=== PATIENT | male | born 1955 | race Caucasian/White ===

== ENCOUNTER 2025-01-19 21:34 | Inpatient (IN) | payer MEDICARE, OTHER, SELFPAY ==
[2025-01-19 18:21] VITALS: BP 125/68
[2025-01-19 18:28] VITALS: BMI 33.4
[2025-01-19 18:43] LABS: % Basophils 0.6 % (0-2); % Eosinophils 1.8 % (0-6); % Immature Granulocytes 0.5 % (0-0.5); % Lymphocytes 20.5 % (20.5-51.1); % Monocytes 7.1 % (1.7-9.3); % Neutrophils 69.5 % (42.2-75.2); Absolute Basophils 0.1 10^3/uL (0-0.2); Absolute Eosinophils 0.2 10^3/uL (0-0.7); Absolute Immature Granulocytes 0.1 10^3/uL (0-0.05); Absolute Lymphocytes 2.4 10^3/uL (1.2-3.4); Absolute Monocytes 0.8 10^3/uL (0.1-0.6); Hematocrit 38.1 % (39.0-52.0); Hemoglobin 13.2 g/dL (13.0-18.0); Mean Corp Hgb Conc. 34.6 g/dL (33.0-37.0); Mean Corpuscular Hgb 31.9 pg (27.0-31.0); Mean Platelet Volume 9.4 fL (7.4-10.4); Nucleated Red Blood Cells % 0 % (-); Platelet Count 220 10^3/uL (130-400); Red Blood Cell Count 4.14 10^6/uL (4.70-6.10); Red Cell Dist. Width 12.4 % (11.5-14.5); White Blood Cell Count 11.5 10^3/uL (4.8-10.8)
[2025-01-19 18:55] LABS: Blood Urea Nitrogen 19 mg/dl (9-20); Calcium 8.9 mg/dl (8.4-10.2); Carbon Dioxide 26 mmol/L (22-30); Chloride 105 mmol/L (98-107); Estimated Creatinine Clearance 99 ml/min; Glucose 133 mg/dl (70-99); Sodium 140 mmol/L (135-145); eGFR > 60.00
[2025-01-19 19:12] LABS: ALT (SGPT) 113 U/L (0-50); AST (SGOT) 80 U/L (17-59); Albumin 3.5 g/dl (3.5-5.0); Alkaline Phosphatase 65 U/L (38-126); Total Bilirubin 1.2 mg/dl (0.2-1.3); Total Protein 5.9 g/dl (6.3-8.2)
[2025-01-19 19:39] LABS: Potassium 3.4 mmol/L (3.5-5.1)
[2025-01-19 20:00] VITALS: BP 103/73
--- NOTE | 2025-01-19 20:07 | ED.GENMED ---
History of Present Illness
General
Chief Complaint: Rectal Bleeding
Source: patient and spouse
Exam Limitations: none
Time Seen by Provider: 01/19/25 19:38
Nursing documentation reviewed up to this point in time: agreed with
History of Present Illness
History of Present Illness:
Patient presents to ED for an evaluation after multiple episodes of bloody bowel movements, along with 1 vomiting episode. Shortly after vomiting, patient was in bed not feeling well, when he passed out for 'seconds', witnessed by spouse. Denies
preceding chest palpitations, chest pain, or nausea. Per spouse, patient became pale when the incident occurred. When patient came to, patient felt tired, but denies any confusion. Denies previous history of similar symptoms. Patient takes 81 mg
aspirin daily. Patient does report couple of ibuprofen tablets after coming back home from [facility] this afternoon, prior to bloody bowel movements. However, patient does not take ibuprofen daily. Of note, patient does report returning from
vacationing down in [place] recently, and over the weekend, he felt as though he was coming down with 'viral illness'. Since then, his symptoms have improved.
Review of Systems
Review of Systems
Allergies reviewed?: Yes
All Other Systems: ROS reviewed and negative except as documented in HPI and ROS
Constitutional: Reports no symptoms; Denies fever
Respiratory: Reports no symptoms
Cardiac: Reports syncope
ABD/GI: Reports bloody stools; Denies vomiting or diarrhea
Musculoskeletal: Reports no symptoms
Skin: Reports no symptoms
Neurological: Reports dizzy; Denies weakness
Phy Exam
Physical Exam
Physical Exam:
Physical Exam
General: no apparent distress, not acutely ill. afebrile
Head: nc/at. eomi
Neck: supple. normal range of motion.
Heart: s1/s2 regular rate and rhythm
Lungs: no acute respiratory distress. clear bilaterally
Abdomen: normal bowel sounds. not tender.
Neuro: alert and oriented x 3. no focal neurological deficits
Skin: no rash
Psychiatric: well kept. interactive and cooperative
Extremities: no edema. no calf tenderness.
Course
Orders/Labs/Results
Orders:
Orders
01/19/25 Dinner
Clear Liquid
At Your Request: Full Participation
Does patient need a safe tray?: No
01/19/25 18:19
Electrocardiogram (*1) Urgent
Reason for Study: Syncope
01/19/25 18:20
EKG- Treatment ONCE
01/19/25 18:31
Type And Crossmatch [Type+Screen] Urgent
Complete Blood Count/With Diff Urgent
Comprehensive Metabolic Panel Urgent
01/19/25 19:05
ABO2 Urgent
BBK Wristband Number:
Associate notified that ABO2 has been ordered: [id number]
Date: 01/19/25
Time: 19:00
Clinical Implementation Specialist ID: [id number]
01/19/25 20:18
Pantoprazole [Protonix IV] 40 mg IV NOW STA
01/19/25 20:31
PTT Urgent
Prothrombin Time Urgent
01/19/25 21:12
Admit/Transfer Patient As Directed
Co-Sign Provider:
Level of Care: Inpatient admission
Assign to:: Telemetry
Physician / Group: hospitalist
Diagnosis: Lower GI bleed
Reason for Telemetry: Other
Other Reason for Telemetry: GI bleed
Date to Stop Telemetry: 01/21/25
Time to Stop Telemetry: 11:00
Reason for Hospitalization: lower GI bleed
Expected length of stay greater than two midnights?: Yes
ELOS- Estimated Length of Stay in days: 2
I certify the patient meets the requirements for IP care: Yes
01/19/25 21:13
Code Status As Directed
Resuscitation Status: Full Code
PRN Pain Medication Management As Directed
May give lesser potent ordered pain med per pt: Yes
preference::
Protocol:: Medication orders for pain may be administered in a
manner that supports deferring to patient preference
when the pt is:
- Requesting an ordered lesser potent pain medication.
Least to most potent pain medications are defined
as: acetaminophen < NSAID < tramadol < opioids
(morphine, oxycodone, hydromorphone).
- Requesting a lesser dose of the same medication IF
ORDERED.
- Requesting a less intrusive route of administration
if both routes are prescribed by the provider (PO <
IV).
01/19/25 21:46
GASTROINTESTINAL CONSULT Routine
Consulting Provider: David Sanchez
Was physician already notified: Yes
Reason for consult: gi bleed
Activity As Directed
Activity Level: With Assistance
INT (Intravenous Needle Therapy) As Directed
Comment: Place 2 IV catheters of the largest bore possible until stable
Orthostatic Vital Signs As Directed
Orthostatic VS Frequency: Daily
Pneumatic Compression Sleeves As Directed
Type: Knee high
Vital Signs As Directed
Frequency: Per unit guidelines
DX Deep Vein Thrombosis Video Routine
01/19/25 22:00
Flush (0.9% Sodium Chloride) [Flush (Nss)] See Dose Instructions IV PER PROTOCOL
01/19/25 22:58
H&H Q8H
01/20/25 05:18
H&H Q8H
01/20/25 08:00
Allopurinol [Zyloprim] 300 mg PO DAILY
Pantoprazole [Protonix IV] 40 mg IV DAILY
01/20/25 13:38
H&H Q8H
01/20/25 21:46
H&H Q8H
01/21/25 11:00
DC Protocol for Telemetry ONCE
Abnormal Lab Results
01/19/25
18:31
WBC 11.5 H 10^3/uL
(4.8-10.8)
RBC 4.14 L 10^6/uL
(4.70-6.10)
Hct 38.1 L %
(39.0-52.0)
MCH 31.9 H pg
(27.0-31.0)
Abs Immat Gran (auto) 0.1 H 10^3/uL
(0-0.05)
Absolute Neuts (auto) 8.0 H 10^3/uL
(1.4-6.5)
Absolute Monos (auto) 0.8 H 10^3/uL
(0.1-0.6)
Potassium 3.4 L mmol/L
(3.5-5.1)
Glucose 133 H mg/dl
(70-99)
AST 80 H U/L
(17-59)
ALT 113 H U/L
(0-50)
Total Protein 5.9 L g/dl
(6.3-8.2)
01/19/25 18:31
01/19/25 18:31
Vital Signs
Initial and Last Documented VS:
Initial Vital Signs
Temp Pulse Resp BP Pulse Ox
97.7 F 71 16 125/68 96
01/19/25 18:21 01/19/25 18:21 01/19/25 18:21 01/19/25 18:21 01/19/25 18:21
Last Documented Vital Signs
Temp Pulse Resp BP Pulse Ox
98.0 F 78 16 144/78 98
01/20/25 11:33 01/20/25 11:33 01/20/25 11:33 01/20/25 11:33 01/20/25 11:33
MDM/Problems Addressed
MDM/Problems Addressed:
H/H noted. Syncopal episode, likely vasovagal in nature, along with likely component of dehydration versus acute volume loss and via multiple bloody bowel movements. Nonetheless, patient is currently asymptomatic with stable vital signs. No
further episodes of bloody bowel was noted in ED. Patient given Protonix IV. Patient will be admitted for further evaluation and treatment, with consideration to obtain CT angiogram abdomen pelvis with any further bloody bowel movements in ED.
Blood transfusion consent on the chart. GI physician on-call, , notified via [facility] text.
*EKG
Interpreted by ED Provider?: Yes
EKG Intrepretation Date: 01/19/25
Heart Rate: 68
Rate: normal
Rhythm: sinus
Dale: normal axis
*Critical Care Note
Total Time (30-74mins, 75-104mins- exclusive of procedures): Not Applicable
ED Attending Note
-
Portions of this chart may have been created with voice recognition software.� Occasional wrong word or��sound alike� substitutions may have occurred due to the inherent limitations of voice recognition software.
Discharge Plan
Departure
Patient Disposition: Admit
Date of Disposition: 01/19/25
Time of Disposition: 20:12
Admit to: Telemetry
Presentation/result/management discussed w/ accepting MD/DO: Hospitalist
Discharge Problem:
GI bleed, Syncope
Interventions
Interventions:
*Risk Screen - Suicide Last Done: 01/19/25 18:21
*General Assessment Last Done: 01/19/25 18:21
*Neglect/Abuse Screening Last Done: 01/19/25 18:21
*ED- Fall Risk Assessment Last Done: 01/19/25 18:28
*ED COVID-19 Vaccine History Last Done: 01/19/25 18:28
*Nursing Disposition Last Done: 01/19/25 21:42
GM-Dqxjoj-Djclujoqlc Assessment Last Done: 01/19/25 18:29
ED- Cardiac Assessment Last Done: 01/19/25 18:29
ED- Pulmonary Assessment Last Done: 01/19/25 18:29
Discharge Date and Time
Discharge Date/Time: 01/19/25 21:43
[2025-01-19] MEDS: PROTONIX IV 40 MG IV (20:31)
[2025-01-19 20:50] LABS: PT 14.5 Sec (11.4-14.6)
[2025-01-19 20:51] LABS: APTT 24.5 Sec (23.4-35.0)
[2025-01-19 21:00] VITALS: BP 147/87
--- NOTE | 2025-01-19 21:05 | HPS.HSE ---
Family Physician
-
Family Physician: Austin Hopkins
Chief Complaint
-
Rectal bleeding
History of Present Illness
Is a 69-year-old male with past medical history significant hypertension, gout, history of chronic elevated LFTs presenting to the emergency department with episode of bright red blood per rectum as well as presyncope.
Patient was in usual state of health and actually played golf today. After getting home at around 4 PM he had an episode of bright red blood in the toilet bowl. He did not think too much of it. He denied having any abdominal pain. He denies any
nausea or vomiting at that time.
Patient then had another episode of bloody bowel movement that included lots of clots. After having this bloody bowel movement he had nausea and then vomited. The vomit was nonbloody and nonbilious.
Patient denies any preceding episodes of melena or hematochezia or abdominal pain. He denies any fevers or chills. His last colonoscopy was about 4 years ago and reported that there was no abnormal findings noted.
He takes 81 mg aspirin daily. He took additional NSAIDs today but generally denies taking NSAIDs on a regular basis.
Patient drinks about 2 glasses of wine nightly.
He did have an episode of presyncope after the vomiting. This lasted for about 15 seconds. When EMS arrived and patient stood up he felt very dizzy and had a episode of low blood pressure at that time.
In the emergency department here he had received a liter of fluids per EMS. His blood pressure was 125/60 sitting with a pulse of 75 and he was satting 97% on room air. Hemoglobin was 7.2 with normal platelet count. INR is normal. Electrolytes
BUN/creatinine has remained all in the normal range.
Medical History
Past Medical History
Past Medical History: Reports HTN
Past Surgical History: Reports Appendectomy and Other (Hernia repair)
Social History
Tobacco: Non-smoker
Alcohol: Daily (2 glasses of wine)
Drug: None
Personal:
Living: With Family
Family History
Family History: Not pertinent
Allergies / Home Medications
Allergies reflects when Allergies were last updated in [facility].
Home Medications with original date entered in [facility]
Allergy/Medication List:
Allergies
Allergy/AdvReac Type Severity Reaction Status Date / Time
No Known Allergies Allergy Verified 01/19/25 18:29
Home Medications
allopurinol 300 mg tablet 300 mg PO DAILY 01/19/25
amlodipine 5 mg tablet 5 mg PO DAILY 01/19/25
aspirin 81 mg tablet,delayed release 81 mg PO DAILY 01/19/25
ibuprofen 200 mg tablet 400 mg PO DAILYPRN PRN mild pain 01/19/25
lisinopril 20 mg-hydrochlorothiazide 25 mg tablet 1 tab PO DAILY 01/19/25
therapeutic multivitamin 1 tab PO DAILY 01/19/25
Review of Systems
-
History Source: Patient
Constitutional: Reports No Symptoms
EENT: Reports No Symptoms
Respiratory: Reports No Symptoms
Cardiac: Reports No Symptoms
Abdomen/GI: Reports Bloody Stools
: Reports No Symptoms
Musculoskeletal: Reports No Symptoms
Skin: Reports No Symptoms
Neurological: Reports No Symptoms
Endocrine: Reports No Symptoms
Hematologic/Lymphatic: Reports No Symptoms
Psych: Reports No Symptoms
Physical Exam
Vital Signs
Vital Signs
Temp Pulse Resp BP Pulse Ox
97.7 F 75 27 125/68 96
01/19/25 18:21 01/19/25 19:30 01/19/25 19:30 01/19/25 18:21 01/19/25 19:30
Physical Exam
General: Well Developed, Well Nourished, No Apparent Distress and Comfortable
HEENT: NormoCephalic, Anicteric, Moist mucous membranes and Atraumatic
Respiratory: Clear
Cardiac: S1/S2 and Regular Rhythm
GI: Soft, Non Tender, Non Distended and Normal Bowel Sounds
Rectal: Red
Genito-urinary: Deferred by me
Musculoskeletal: No Clubbing, No Cyanosis and No Edema
Skin: Warm
Neuro: AO x 3 and No Motor Deficits
Hematologic/Lymphatic: No Lymphadenopathy
Psych: Calm
Laboratory Results
-
01/19/25 18:31
01/19/25 18:31
Laboratory Results
PT 14.5 Sec (11.4-14.6) 01/19/25 20:31
INR 1.10 01/19/25 20:
APTT 24.5 Sec (23.4-35.0) 01/19/25 20:
Total Bilirubin 1.2 mg/dl (0.2-1.3) 01/19/25 18:31
AST 80 U/L (17-59) H 01/19/25 18:31
ALT 113 U/L (0-50) H 01/19/25 18:31
Alkaline Phosphatase 65 U/L (38-126) 01/19/25 18:31
Data Reviewed
-
Lab Data: Labs Reviewed by me
Old Records: Reviewed
Impression/Plan
-
IMPRESSION:
69-year-old with history of hypertension presents emergency department with bright red blood per rectum and presyncopal episode. He had 2 episodes of bloody bowel movement. He has not had another episode since arrival in the emergency department.
He is currently hemodynamically stable with a hemoglobin of 13.2. Denies any prior history of GI bleed. He is not on any anticoagulants. He is on aspirin daily. Last colonoscopy was about 4 years ago which shows no acute abnormalities. No
recent episodes of melena or hematochezia. No history of peptic ulcer disease or GERD.
PLAN:
1. Bright red blood per rectum�suspected lower GI bleed. Given apparent cessation and passing of clots suspect most likely diverticular but no known history of diverticulosis. He had clear colonoscopy 4 years ago so unlikely malignancy. No
anticoagulation. Cannot rule out a malformation. No diarrhea or abdominal pain to suggest ischemic colitis.
- admit to telemetry
- clear liquid diet for now
- typed and crossed, consented
- H&H q 8
- if recurrent bleed, will get CT GI bleeding scan, hold imaging for now
- hold antihypertensives
- gentle hydration overnight
- GI consulted and aware
2. Transaminitis - Patient drinks about 2 glasses of wine daily. Reports h/o chronic elevations in LFTS. No abdominal pain. PMD aware and since stability of labs has not ordered further w/u
- possible fatty liver, consider outpatient u/s
- reduce etoh intake
- no h/o withdrawal
3. HTN
- holding amlodipine, lisinopril-hctz for now
DVT PPX - SCDs
Code status - Full code
[2025-01-19 22:07] VITALS: BP 127/76; BP 130/65; BP 138/75; PULSE 82; PULSE 84; PULSE 96; BMI 28.8
--- NOTE | 2025-01-19 22:15 | PTCARENOTE ---
Prehospital site removed in left AC, see worklist. Order for 2 large bore IV's until patient stable, discussed with RN and patient stable at this time, no need for additional IV.
--- NOTE | 2025-01-19 22:29 | PTCARENOTE ---
Receive pt from ER. Pt alert oriented X3, calm and cooperative, in no distress. Pt denies dizziness, SOB, chest pain, abd pain, or any new bleeding episode. Pt assist X1 to bed. Pt oriented to the room, call palmer within reach, at the bedside.
VSS (T=98, HR=82, RR=18, VY=482/75, SpO2=97% on RA). Orthos VS unremarkable. Pt on NSR on telemonitor. H&H drawn as per order. Will continue to monitor the pt.
[2025-01-19 23:18] VITALS: BP 121/72
[2025-01-20 03:42] VITALS: BP 138/78
[2025-01-20 06:39] LABS: Hematocrit 34.5 % (39.0-52.0); Hemoglobin 11.9 g/dL (13.0-18.0)
[2025-01-20 07:10] VITALS: BP 122/76; BP 136/82; BP 150/80; PULSE 77; PULSE 81; PULSE 97
[2025-01-20 07:10] LABS: ALT (SGPT) 100 U/L (0-50); AST (SGOT) 60 U/L (17-59); Albumin 3.5 g/dl (3.5-5.0); Alkaline Phosphatase 61 U/L (38-126); Blood Urea Nitrogen 23 mg/dl (9-20); Calcium 8.5 mg/dl (8.4-10.2); Carbon Dioxide 23 mmol/L (22-30); Chloride 107 mmol/L (98-107); Direct Bilirubin 0.2 mg/dl (0.0-0.4); Estimated Creatinine Clearance 124 ml/min; Glucose 108 mg/dl (70-99); Potassium 3.9 mmol/L (3.5-5.1); Sodium 139 mmol/L (135-145); Total Bilirubin 1.3 mg/dl (0.2-1.3); Total Protein 5.9 g/dl (6.3-8.2); eGFR > 60.00
--- NOTE | 2025-01-20 07:54 | CON.GI ---
Addendum entered and electronically signed by David Sanchez MD 01/20/25 10:08:
Patient seen and examined, agree with nurse practitioner note. Patient is a 6-year-old male with medical history as noted presents with bright red blood per rectum with clots. He was in his usual state of health and then had 2 episodes of large
amount of bright red blood with clots. He felt lightheaded did not have syncope. He is never had bleeding like this before. He was taking NSAIDs on occasion that has been stopped for a bit, and does take aspirin daily. His last colonoscopy was
okay by report, does not member having diverticulosis. He states that his LFTs have been mildly elevated, though have been trended as an outpatient and overall stable. On exam he has no significant tenderness. He did have 1 bowel movement this
morning which was smaller, though still small mount of clots and red, though denies any further lightheadedness or dizziness.
1. GI bleed: Likely lower, likely diverticular, with normal BUN on admission, had an episode of emesis when he was lightheaded without coffee grounds or blood, now remains hemodynamically stable. His bowel movement this morning was likely old
blood. Will continue observation for now, clear liquid diet for today. If signs of brisk active bleeding then CT angiogram. If all remains stable then likely be able to advance diet and discharge tomorrow. Will obtain records from his last
colonoscopy.
2. Elevated LFTs: In a mild necroinflammatory pattern, likely related to metabolic associated fatty liver disease. Will get old records, and plan outpatient workup.
Original Note:
Consultation
-
Date/Time Consultation Requested: 01/19/25 6796
Date/Time Consultation Performed: 01/20/25 0740
Requesting Provider: Dr. Greenfield
Performing Provider: Dr. Sanchez/CALI Samayoa
Reason for Consultation: GI Bleed
Medical History
Chief Complaint / HPI
Chief Complaint: Rectal bleeding
History of Present Illness:
69-year-old male with past medical history of hypertension Gout, chronically elevated LFTs (approximately last 3 to 4 years followed by his PCP without further workup) who presents to the hospital with 2 episodes of bright red blood as well as
presyncopal episode. Asked to evaluate for the same. The patient states that approximately 2 weeks ago he 'tweaked his back'. And was taking intermittent ibuprofen 2 to 3 pills every day to every couple days, stopping last Wednesday. He does take
aspirin 81 mg daily. He does drink approximately 4 to 5 glasses of wine a week. His last colonoscopy was approximately 3 to 4 years ago at [facility]. He states he gets a colonoscopy approximately once every 10 years. No family history of
gastrointestinal malignancy, IBD. He does not have any upper GI symptoms leading up to this. The patient states that yesterday morning he had a normal brown bowel movement. Later he sat down to have another bowel movement and he noticed he had
brown stool with bright red blood in the toilet. He then felt the urge to have another bowel movement this time it was bright red blood with clots and he felt nauseous and felt like he was going to pass out, he did have a small amount of clear
vomitus. He sat down. His then brought him to the emergency room for further evaluation. Since that time he has had no further episodes of bleeding. He has had no bowel movements. He never had any abdominal pain. He denies any chest pain
or shortness of breath. The patient denies any fevers, chills, melena, dysphagia or dyne aphasia. No early satiety or unintentional weight loss. He is currently tolerating clear liquid diet without any difficulty. There is no pain or tenderness
upon palpation. Followed by his PCP without any further workup. Was told they would just monitor it with blood work. Patient denies any tattoos, piercings, IV drug use, history of hepatitis.
Past Medical History
Past Medical History: HTN and Other (Gout, chronically elevated LFTs (3 to 4 years))
Past Surgical History: Other (Vasectomy, umbilical hernia, appendectomy)
Social History
Tobacco: Smoker (Occasional cigar)
Alcohol: Occasional (Proximately 3 to 4 glasses of wine a week)
Drug: None
Personal:
Living: With Family
Employment: Retired
Family History
Family History: Other (Family history gastrointestinal malignancy or IBD)
Allergies / Home Medications
Allergy/AdvReac Type Severity Reaction Status Date / Time
No Known Allergies Allergy Verified 01/19/25 18:29
�Medication �Instructions �Recorded
allopurinol 300 mg tablet 300 mg PO DAILY 01/19/25
amlodipine 5 mg tablet 5 mg PO DAILY 01/19/25
aspirin 81 mg tablet,delayed 81 mg PO DAILY 01/19/25
release
ibuprofen 200 mg tablet 400 mg PO DAILYPRN PRN mild pain 01/19/25
lisinopril 20 1 tab PO DAILY 01/19/25
mg-hydrochlorothiazide 25 mg tablet
therapeutic multivitamin 1 tab PO DAILY 01/19/25
Review of Systems
-
All other systems: A 12 pt ROS was Negative except as stated above in HPI
Vital Signs
Temp Pulse Resp BP Pulse Ox
97.7 F 70 18 138/78 98
01/20/25 03:42 01/20/25 03:42 01/20/25 03:42 01/20/25 03:42 01/20/25 03:42
Physical Exam
Exam
General: No Apparent Distress
HEENT: Anicteric
Respiratory: Clear
Cardiac: Regular Rhythm
GI: Soft, Non Tender, Non Distended and Normal Bowel Sounds
Rectal: Red (Exam performed by the send attending was red )
Musculoskeletal: No Edema
Skin: Warm and Dry
Neuro: AO x 3
Psych: Calm
Results
WBC 11.5 10^3/uL (4.8-10.8) H 01/19/25 18:31
Hgb 11.9 g/dL (13.0-18.0) L 01/20/25 05:18
Hct 34.5 % (39.0-52.0) L 01/20/25 05:18
MCV 92.0 fL (80.0-94.0) 01/19/25 18:31
Plt Count 220 10^3/uL (130-400) 01/19/25 18:31
Absolute Neuts (auto) 8.0 10^3/uL (1.4-6.5) H 01/19/25 18:31
PT 14.5 Sec (11.4-14.6) 01/19/25 20:31
INR 1.10 01/19/25 20:31
APTT 24.5 Sec (23.4-35.0) 01/19/25 20:31
Sodium 139 mmol/L (135-145) 01/20/25 05:18
Potassium 3.9 mmol/L (3.5-5.1) 01/20/25 05:18
Chloride 107 mmol/L (98-107) 01/20/25 05:18
Carbon Dioxide 23 mmol/L (22-30) 01/20/25 05:18
BUN 23 mg/dl (9-20) H 01/20/25 05:18
Creatinine 0.7 mg/dL (0.7-1.3) 01/20/25 05:18
Calcium 8.5 mg/dl (8.4-10.2) 01/20/25 05:18
Total Bilirubin 1.3 mg/dl (0.2-1.3) 01/20/25 05:18
AST 60 U/L (17-59) H 01/20/25 05:18
ALT 100 U/L (0-50) H 01/20/25 05:18
Alkaline Phosphatase 61 U/L (38-126) 01/20/25 05:18
Diagnostic Image Results:
None
Prior GI Procedures:
EGD: Never had
Colonoscopy: Per patient at [facility] approximately 3 to 4 years ago. States it was 'normal'. Records unavailable to us. Was having colonoscopies approximately every 10 years.
Assessment / Plan
-
69-year-old male with past medical history of hypertension Gout, chronically elevated LFTs (approximately last 3 to 4 years followed by his PCP without further workup) who presents to the hospital with 2 episodes of bright red blood as well as
presyncopal episode. Asked to evaluate for the same. Followed by his PCP without any further workup. Patient with first episode of rectal bleeding associated with bowel movement (bright red blood in bowl). Second was bright red blood with clots.
Associated with presyncopal episode, nausea, clear vomitus and dizziness. Hemoglobin on presentation 13.2 down to 11.9 this a.m. No further episodes of bowel movement or bleeding since arrival. Patient without tachycardia, lowest blood pressure
103/73, currently 136/82. Patient without any abdominal pain or tenderness. Tolerating clear liquid diet without any difficulty. Was on aspirin 81 mg as well as ibuprofen 200 mg 2-3 a day for 10 days leading up to event. Patient also with
chronically elevated AST/ALT for '3 to 4 years'. The patient is on allopurinol which can elevate AST/ALT. Unsure when he was placed on this. Patient has never had any liver imaging. Does drink 3-4 alcoholic beverages a week. Denies any heavier
use. Preserved platelets. INR 1.10. Recommended patient have evaluation of elevated LFTs as an outpatient.
Impression:
GI bleed, likely lower.
-Most likely etiology diverticular bleeding, less likely ischemic given no pain, AVM, or less likely upper GI bleed.
-Will need to obtain records from [facility] for last colonoscopy, as patient would like to follow-up with [facility] after discharge
Elevated transaminases
-Patient on allopurinol which can cause elevation in AST/ALT
-Patient also with obesity, to consider fatty liver
-Has been elevated for at least 3 to 4 years, followed by PCP serologically.
-Recommend to patient that he have this further worked up as an outpatient. Platelets preserved, INR 1.1.
-Would avoid alcohol, hepatotoxins
-Patient states that he would like to follow-up with our group as an outpatient as he is switching all his care to [facility].
Plan:
-Continue clear liquid for now. Can advance to low residue diet if continues to have no further bowel movements/bleeding
-Trend hemoglobin
-If with active signs of bleeding will check CT angio
-Follow-up with [facility] as an outpatient as patient would like to transfer his care
-Will need further workup as an outpatient for elevated AST/ALT
-Will need to obtain records from [facility] for prior colonoscopies as an outpatient
-Discussed with patient stop alcohol
-Will hold aspirin as patient does not have history of stents or cardiovascular events
-
-
Thank you for consultation and allowing me to participate in the patient's care. Please call the doorperson GI physician during the after hours with any questions or concerns.
[2025-01-20] MEDS: ZYLOPRIM 300 MG PO (08:35)
[2025-01-20] MEDS: FLUSH (NSS) 2 FLUSH IV (08:35)
[2025-01-20] MEDS: PROTONIX IV 40 MG IV (08:35)
[2025-01-20] MEDS: NSS (PRESERVATIVE FREE) 10 ML IV (08:35)
--- NOTE | 2025-01-20 09:03 | W.PN.HOSP.TC ---
Today's Communication/Plan
-
see plan
Assessment / Plan
Assessment / Plan
69-year-old with history of hypertension presents emergency department with bright red blood per rectum and presyncopal episode. He had 2 episodes of bloody bowel movement. He has not had another episode since arrival in the emergency department.
He is currently hemodynamically stable with a hemoglobin of 13.2. Denies any prior history of GI bleed. He is not on any anticoagulants. He is on aspirin daily. Last colonoscopy was about 4 years ago which shows no acute abnormalities. No
recent episodes of melena or hematochezia. No history of peptic ulcer disease or GERD.
Gen: NAD, AAOx3.
Eyes: EOMI, PERRLA, no scleral icterus.
Neck: supple.
CV: RRR, +S1/S2, no m/r/g.
Resp: CTAB, no rales, wheezes, or rhonchi.
Abd: +BS, soft, NT, ND
Skin: No rashes.
Neuro: CN 2-12 intact, non-focal.
Psych: Normal mood and affect.
BRBPR:
-likely due to LGIB, suspect diverticular
-acute blood loss anemia
-typed and crossed, consented
-trend Hb
-clears for now (bloody BM this AM)
-Holding home antihypertensives
-GI following
Transaminitis:
-minimal
-drinks ~ 2 glasses of wine daily. Reports h/o chronic elevations in LFTS. No abdominal pain. PCP aware and since stability of labs has not ordered further w/u.
-possible fatty liver, consider outpatient u/s
-no h/o withdrawal
-reduce EtOH intake
Essential HTN:
-holding home Norvasc/ACEi/HCTZ
FULL/SCDs
Anticipated Discharge: 24 - 48 hours
Subjective/Interval History
-
Date of Service: January 20, 2025
Denies abdominal pain. Had a bloody bowel movement this morning.
Objective Data
-
Labs:
Laboratory Results
01/19/25 01/20/25 01/20/25
22:58 05:18 13:46
Hgb 13.0 11.9 L Pending
Hct 37.0 L 34.5 L Pending
Sodium 139
Potassium 3.9
Chloride 107
Carbon Dioxide 23
BUN 23 H
Creatinine 0.7
Glucose 108 H
Calcium 8.5
Total Bilirubin 1.3
AST 60 H
ALT 100 H
Alkaline Phosphatase 61
01/20/25
21:46
Hgb Pending
Hct Pending
Sodium
Potassium
Chloride
Carbon Dioxide
BUN
Creatinine
Glucose
Calcium
Total Bilirubin
AST
ALT
Alkaline Phosphatase
Vital Signs:
Vital Signs
Temp Pulse Resp BP Pulse Ox
97.8 F 77 18 136/82 98
01/20/25 07:10 01/20/25 07:10 01/20/25 07:10 01/20/25 07:10 01/20/25 07:10
I&O
01/19/25 01/20/25 01/21/25
06:59 06:59 06:59
Intake Total 0 / 0
Balance 0 / 0
--- NOTE | 2025-01-20 11:30 | CM ---
Patient seen bedside w/ spouse. Initial assessment completed. Patient is a 69-year-old male with past medical history significant hypertension, gout, history of chronic elevated LFTs presenting to the emergency department with episode of bright red
blood per rectum as well as presyncope.
Patient reports that he resides w/ spouse in a 2STH- 1 step to enter. Patient is independent w/ ambulating, no device required. Independent w/ ADLs. No DME. Denies SNF/HC hx. OP therapy in the past. Denies any current OP or home services at this
time.
Address, points of contact and insurance verified
PCP: Austin Hopkins
Pharmacy: [facility]
Plan: Anticipate home; no needs
[2025-01-20 11:33] VITALS: BP 144/78
[2025-01-20 13:57] LABS: Hematocrit 31.3 % (39.0-52.0)
--- NOTE | 2025-01-20 15:00 | PTCARENOTE ---
Pt's Hgb result from 1330 back at 11.0, 11.9 this morning. Pt had one additional BM today, burgundy in color, small amount. Pt asymptomatic. Made Dr. Yang and Dr. Sanchez aware of BM and Hgb result. Continuing with clear liquids. Updated pt on plan.
[2025-01-20 15:18] VITALS: BP 132/77
[2025-01-20 21:46] LABS: Hematocrit 30.4 % (39.0-52.0); Hemoglobin 10.9 g/dL (13.0-18.0)
[2025-01-20 23:12] VITALS: BP 140/86
[2025-01-21 07:17] LABS: Hematocrit 31.7 % (39.0-52.0); Hemoglobin 11.1 g/dL (13.0-18.0); Mean Corpuscular Hgb 31.8 pg (27.0-31.0); Mean Corpuscular Volume 90.8 fL (80.0-94.0); Mean Platelet Volume 9.2 fL (7.4-10.4); Platelet Count 214 10^3/uL (130-400); Red Blood Cell Count 3.49 10^6/uL (4.70-6.10); Red Cell Dist. Width 12.2 % (11.5-14.5); White Blood Cell Count 8.1 10^3/uL (4.8-10.8)
[2025-01-21 07:55] VITALS: BP 149/89
[2025-01-21 08:03] LABS: Blood Urea Nitrogen 15 mg/dl (9-20); Calcium 8.5 mg/dl (8.4-10.2); Carbon Dioxide 26 mmol/L (22-30); Chloride 106 mmol/L (98-107); Estimated Creatinine Clearance 124 ml/min; Glucose 110 mg/dl (70-99); Potassium 3.7 mmol/L (3.5-5.1); Sodium 138 mmol/L (135-145); eGFR > 60.00
[2025-01-21] MEDS: NSS (PRESERVATIVE FREE) 10 ML IV (08:13)
[2025-01-21] MEDS: ZYLOPRIM 300 MG PO (08:13)
[2025-01-21] MEDS: PROTONIX IV 40 MG IV (08:13)
--- NOTE | 2025-01-21 09:05 | W.PN.GI.CBS2 ---
Today's Communication / Plan
-
Please see assessment and plan for details.
Assessment / Plan
-
1. GI bleed: Likely diverticular, now with stable hemoglobin, dark brown stool this morning, overall feeling well. At this point will advance diet, and if tolerates is okay to DC from GI standpoint.
2. 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
I sent a note to our office to follow-up with me within a month, will check outpatient records of last colonoscopy, LFTs etc. and plan continued outpatient workup.
Subjective
Subjective
Date of Service: January 21, 2025
Patient feeling well, had brown bowel movement with small amount of blood this morning, no abdominal pain, lightheadedness, tolerating liquid without difficulty.
Objective
Data Reviewed
Laboratory Data:
Laboratory Results
01/21/25 06:57
01/21/25 06:57
Laboratory Results
PT 14.5 Sec (11.4-14.6) 01/19/25 20:31
INR 1.10 01/19/25 20:31
APTT 24.5 Sec (23.4-35.0) 01/19/25 20:31
Total Bilirubin 1.3 mg/dl (0.2-1.3) 01/20/25 05:18
AST 60 U/L (17-59) H 01/20/25 05:18
ALT 100 U/L (0-50) H 01/20/25 05:18
Alkaline Phosphatase 61 U/L (38-126) 01/20/25 05:18
Vital Signs and I&O:
Vital Signs
Temp Pulse Resp BP Pulse Ox
97.6 F 79 16 149/89 97
01/21/25 07:55 01/21/25 07:55 01/21/25 07:55 01/21/25 07:55 01/21/25 07:55
I&O
01/20/25 01/21/25 01/22/25
06:59 06:59 06:59
Intake Total 1479 / 0
Balance 1479
Physical Exam
Physical Exam
General: NAD
Abdomen: normal bowel sounds, soft, no tenderness, no masses or bruits, no ascites
--- NOTE | 2025-01-21 09:51 | W.PN.HOSP.TC ---
Today's Communication/Plan
-
Discharge if patient tolerates a low residue diet
Assessment / Plan
Assessment / Plan
69-year-old with history of hypertension presents emergency department with bright red blood per rectum and presyncopal episode. He had 2 episodes of bloody bowel movement. He has not had another episode since arrival in the emergency department.
He is currently hemodynamically stable with a hemoglobin of 13.2. Denies any prior history of GI bleed. He is not on any anticoagulants. He is on aspirin daily. Last colonoscopy was about 4 years ago which shows no acute abnormalities. No
recent episodes of melena or hematochezia. No history of peptic ulcer disease or GERD.
Gen: NAD, AAOx3.
Eyes: EOMI, PERRLA, no scleral icterus.
Neck: supple.
CV: Remains RRR, +S1/S2, no m/r/g.
Resp: Remains CTAB, no rales, wheezes, or rhonchi.
Abd: Remains +BS, soft, NT, ND
Skin: No rashes.
Neuro: CN 2-12 intact, non-focal.
Psych: Normal mood and affect.
BRBPR:
-likely due to LGIB, suspect diverticular
-acute blood loss anemia
-typed and crossed, consented
-Hb stable
-advance to low residue diet
-Holding home antihypertensives
-GI following
Transaminitis:
-minimal
-drinks ~ 2 glasses of wine daily. Reports h/o chronic elevations in LFTS. No abdominal pain. PCP aware and since stability of labs has not ordered further w/u.
-possible fatty liver, consider outpatient u/s
-no h/o withdrawal
-reduce EtOH intake
Essential HTN:
-holding home Norvasc/ACEi/HCTZ
FULL/SCDs
Anticipated Discharge: Today
Subjective/Interval History
-
Date of Service: January 21, 2025
Denies any further bright red blood per rectum since yesterday. Denies abdominal pain.
Objective Data
-
Labs:
Laboratory Results
01/21/25
06:57
WBC 8.1
Hgb 11.1 L
Hct 31.7 L
Plt Count 214
Sodium 138
Potassium 3.7
Chloride 106
Carbon Dioxide 26
BUN 15
Creatinine 0.7
Glucose 110 H
Calcium 8.5
Vital Signs:
Vital Signs
Temp Pulse Resp BP Pulse Ox
97.6 F 79 16 149/89 97
01/21/25 07:55 01/21/25 07:55 01/21/25 07:55 01/21/25 07:55 01/21/25 07:55
I&O
01/20/25 01/21/25 01/22/25
06:59 06:59 06:59
Intake Total 0 / 0 1480 / 1480
Balance 0 / 0 1480 / 1480
[2025-01-21 11:44] VITALS: BP 131/77; BP 133/79; BP 138/79; PULSE 83; PULSE 87; PULSE 93
--- NOTE | 2025-01-21 12:41 | CM ---
Patient stable for d/c today
Met w/ patient and spouse bedside, agreeable to d/c.
IMM verbally reviewed, patient given copy, copy placed on chart
No CM needs identified at this time
Plan: Home; no needs
--- NOTE | 2025-01-21 13:24 | W.DCSUMMARY ---
Discharge Summary
Discharge Data
Date of Admission: 01/19/25
Date of Discharge: 01/21/25
-
Pending Results: No
Hospital Course
Primary diagnoses:
Acute diverticular bleed
Acute blood loss anemia
Secondary diagnoses:
Transaminitis
Essential pretension
Consultants:
Gastroenterology
Imaging:
None
Hospital course: 69-year-old male who presented with a chief complaint of rectal bleeding as outlined in the H&P done on admission. Patient was initially placed on a clear liquid diet. Hemoglobin on admission was 13.2. It dropped to 11.0 and was
stable at the time of discharge. The patient's lower GI bleeding resolved. He was seen in consultation by GI. His diet was advanced to a low residue diet which she tolerated prior to discharge. Patient also was noted to have a minimal
transaminitis. He reported a history of chronic elevation in his LFTs. He did not have any abdominal pain. His primary care physician has been aware of his elevated transaminases and since they have been stable he has not ordered further workup
at this time. The patient was advised to decrease his alcohol intake. He was discharged in medically stable condition
Discharge Plan
-
Patient Disposition: Home (Routine Discharge)
Discharge Diagnosis/Procedures: Acute diverticular bleed
Condition: Good
Diet: Low Cholesterol and 2 Gram Sodium
Activity: No restrictions
Driving Restrictions: As prior to admission
Bathing Restrictions: None
Blood Work: CMP and CBC in 1 week, prescription from PCP
Referrals:
Austin Hopkins DO [Family Provider] - in less than 1 week
Prescriptions:
Continued
therapeutic multivitamin Tablet
1 tab PO DAILY
amlodipine 5 mg Tablet
5 mg PO DAILY
aspirin 81 mg Tablet,Delayed Release (Dr/Ec)
81 mg PO DAILY
lisinopril-hydrochlorothiazide 20-25 mg Tablet
1 tab PO DAILY
allopurinol 300 mg Tablet
300 mg PO DAILY
Discontinued
ibuprofen 200 mg Tablet
400 mg PO DAILYPRN PRN (Reason: mild pain)
Discharge Orders:
Discharge Patient (As Directed); Ordered 01/21/25
Ordered By: Emerson Yang
Discharge Date and Time
Print Language: CENTRAL AFRICAN
[2025-01-21 14:02] VITALS: BP 132/84
== END 2025-01-21 14:06 | disposition home or self-care (01) | DRG 378 ==
LOC: 4 EAST ACU 21:34
PROVIDERS: Nurse Practitioner Family; Student in an Organized Health Care Education/Training Program; ADMITTING PHYSICIAN Internal Medicine; ATTENDING PHYSICIAN Internal Medicine; CONSULT PHYSICIAN Internal Medicine Gastroenterology; EMERGENCY PHYSICIAN Emergency Medicine; FAMILY PHYSICIAN Family Medicine
DX: K57.31 Diverticulosis of large intestine without perforation or abscess with bleeding (principal); D62 Acute posthemorrhagic anemia; Z79.82 Long term (current) use of aspirin; M10.9 Gout, unspecified; I10 Essential (primary) hypertension; Z90.49 Acquired absence of other specified parts of digestive tract; E66.9 Obesity, unspecified; Z68.28 Body mass index [BMI] 28.0-28.9, adult; F17.290 Nicotine dependence, other tobacco product, uncomplicated; Z79.899 Other long term (current) drug therapy; Z80.0 Family history of malignant neoplasm of digestive organs
CPT/HCPCS: 80048; 80053; 82248; 85014; 85018; 85025; 85027; 85610; 85730; 86850; 86900; 86901; 93005; 96374; 99285

== ENCOUNTER → 2025-02-19 07:42 | Outpatient (REF) | payer MEDICARE, OTHER, SELFPAY | LOC: MRI 07:42 | PROVIDERS: ATTENDING PHYSICIAN Internal Medicine Gastroenterology; FAMILY PHYSICIAN Family Medicine | DX: R79.89 Other specified abnormal findings of blood chemistry (principal) | CPT/HCPCS: 74183; 76391; A9575 ==

== ENCOUNTER 2025-04-13 06:17 | Day surgery (SDC) | payer MEDICARE, OTHER, SELFPAY | END 2025-04-13 09:52 | disposition home or self-care (01) | LOC: GI 06:17 | PROVIDERS: ATTENDING PHYSICIAN Internal Medicine Gastroenterology; FAMILY PHYSICIAN Family Medicine | DX: K62.5 Hemorrhage of anus and rectum (principal); K64.8 Other hemorrhoids; K57.30 Diverticulosis of large intestine without perforation or abscess without bleeding | CPT/HCPCS: 45378 ==